=== PATIENT | male | born 2000 | race Caucasian/White ===

== ENCOUNTER 2020-08-25 08:05 | Day surgery (SDC) | payer BC ==
[~2020-08-25 08:05] MED LIST: Bupivacaine 0.5% 50 ML MDV ONE; Lidocaine 1% with EPINEPHrine 1:100,000 50 ML MDV ONE
[2020-08-25] MEDS ORDERED: Sodium Chloride 0.9% 1,000 ML IV SCH (08:45)
[2020-08-25] MEDS ORDERED: Midazolam 1 MG/ML 2 ML SDV ONE (08:50)
[2020-08-25] MEDS ORDERED: Propofol 200 MG/20 ML SDV ONE ×2 (08:50→10:44)
[2020-08-25] MEDS ORDERED: fentaNYL 100 MCG/2 ML SDV ONE (08:50)
[2020-08-25] MEDS ORDERED: ceFAZolin 2 GM in Premix Bag 1 BAG IV ONE (09:40)
[2020-08-25] MEDS ORDERED: metroNIDAZOLE/Normal Saline 500 MG in Premix Bag 1 BAG IV ONE (09:40)
[2020-08-25] MEDS ORDERED: Ondansetron 4 MG/2 ML SDV ONE (10:45)
[2020-08-25] MEDS ORDERED: Dexamethasone 4 MG/ML SDV ONE (10:45)
--- NOTE | 2020-08-26 10:28 | OR ---
DATE OF PROCEDURE: 08/25/2020 SURGEON: Devyn Almazan MD PROCEDURE: Excision of pilonidal cyst, midline, posterior. COMPLICATIONS: None. PESTICIDE CONTROL INSPECTOR: None. ANESTHESIA: MAC. PREOPERATIVE DIAGNOSIS: Pilonidal cyst. POSTOPERATIVE DIAGNOSIS: Pilonidal cyst. RISKS: Risks, benefits, alternatives, and limitations including but not limited to infection; bleeding; chronic wound, the fact that this may take even including a year to heal; recurrence; and other risks not listed here were explained to the patient who wished to proceed. PROCEDURE IN DETAIL: The patient was placed in a prone position. The pilonidal opening was identified by its superficial opening. This was anesthetized with lidocaine, and an elliptical incision was made around this. This was then carried down with electrocautery involving the probable cystic area. This was sent to Pathology. This was then closed with layers of 3-0 Vicryl and 2-0 nylon in interrupted fashion. Dressings were applied. The patient tolerated the procedure well. Devyn Almazan MD /[id number]
== END 2020-08-25 12:20 | disposition home or self-care (01) ==
LOC: JP.SDS 08:05
PROVIDERS: ATTEND Surgery
DX: L05.91 Pilonidal cyst without abscess (principal)
CPT/HCPCS: 11770; J0690; J1100; J2250; J2405; J2704; J3010; J3490; J7030